=== PATIENT | female | born 1950 | race Hispanic/Latino ===

== ENCOUNTER 2022-03-29 09:36 | Emergency (ER) | payer MEDICARE ==
[2022-03-29] MEDS ORDERED: SODIUM CHLORIDE 0.9% 1000ML 1,000 ML IV ONE (09:45)
[2022-03-29] MEDS ORDERED: MECLIZINE HCL 12.5 MG TAB PO ONE (09:45)
[2022-03-29] MEDS ORDERED: ONDANSETRON HCL INJ 2MG/ML 2ML 2 MG/ML VIAL IV STA (09:51)
[2022-03-29 09:57] LABS: BASOPHILS % 0.3 % (0.0-1.0); HEMATOCRIT 41.6 % (34.2-44.1); LYMPHOCYTES % 15.5 % (18.0-39.1); MEAN CORPUSCULAR HEMOGLOBIN 30.6 pg (28-32); MEAN CORPUSCULAR HGB CONC 33.7 g/dL (31-35); MONOCYTES # (AUTO) 0.5 (0.2-0.8); MONOCYTES % 7.8 % (4.4-11.3); NEUTROPHILS % 76.1 % (38.7-80.0); PLATELET COUNT 234 x10e3/uL (140-360); RED BLOOD COUNT 4.57 x10e6/uL (3.6-5.1)
[2022-03-29 10:17] LABS: INR 0.86; PROTHROMBIN TIME 12.5 seconds (11.9-14.5)
[2022-03-29 10:27] LABS: ALANINE AMINOTRANSFERASE 12 IU/L (0-55); ALBUMIN/GLOBULIN RATIO 1.3 (0.8-2.0); ALKALINE PHOSPHATASE 74 IU/L (40-150); ANION GAP 19.1 mmol/L (8-16); BLOOD UREA NITROGEN 10 mg/dL (7-26); BUN/CREATININE RATIO 15 (6-25); CALCIUM 9.2 mg/dL (8.4-10.2); CARBON DIOXIDE 21 mmol/L (22-29); CHLORIDE 103 mmol/L (98-107); CREATINE KINASE 66 IU/L (29-168); CREATININE, SERUM 0.65 mg/dL (0.57-1.11); GLUCOSE 135 mg/dL (74-118); POTASSIUM 3.1 mmol/L (3.5-5.1); SODIUM 140 mmol/L (136-145)
[2022-03-29 10:29] LABS: PARTIAL THROMBOPLASTIN TIME 29.2 seconds (23.8-35.5)
[2022-03-29] MEDS ORDERED: POTASSIUM CHLORIDE 20 MEQ TAB CR PO STA (11:41)
[2022-03-29] MEDS ORDERED: MECLIZINE HCL12.5 MG PO (11:55)
[2022-03-29] MEDS ORDERED: ONDANSETRON ODT4 MG PO (11:55)
== END 2022-03-29 12:15 | disposition home or self-care (01) ==
LOC: ER 09:44
DX: H81.399 Other peripheral vertigo, unspecified ear (principal); I10 Essential (primary) hypertension
CPT/HCPCS: 36415; 70450; 80053; 82550; 82553; 83735; 84484; 85025; 85610; 85730; 93005; 99285; J2405; J7030; J8597